=== PATIENT | female | born 1980 | race Caucasian/White ===

== ENCOUNTER 2019-10-19 13:51 | Inpatient (IN) ==
--- NOTE | 2019-10-19 14:19 | DR.URIAD ---
HPI - Time Seen Time seen: 14:09 - PCP Primary Care Physician: nfd - Complaint Chief Complaint:: pt was seen last night in [place] last night and they wanted to admit her for walking pneumonia but patient could not stay over night. she came today here cause she stated she feels bad. was checked and was negiative for flu and strep. - Reviewed Nurses Notes Reviewed: Yes - Source History Provided: Patient - Mode of Arrival Mode of Arrival: Ambulatory - Timing Onset of Chief Complaint: 10/17/19 PMH - PMH Past Medical History: Yes Past Medical History: Anxiety, Depression, Diabetes Past Surgical History: No Surgical History: - Family History History of Family Medical Conditions: No - Social History Does patient currently use any type of tobacco product: Yes Have you used tobacco products in the last 12 months: Yes Type of Tobacco Use: Cigarettes How many years tobacco product used: 15 Do you use any recreational Drugs:: Yes Lives With: Family Lives Where: Home - infectious screening In the last 2 months have you had wt loss of >10#?: NO Have you had fever, night sweats or hemotysis?: No Have you traveled outside the country in the last 6 months?: No Isolation: Standard PE - Vital Signs Vitals: Temperature 98.9 F Pulse Rate 112 Respiratory Rate 16 Blood Pressure 114/69 O2 Sat by Pulse Oximetry 95 ROR - Labs Reviewed Result Diagrams: 10/19/19 15:28 10/19/19 22:00 - Labs Reviewed Laboratory: WBC 17.7 X10^3/uL (3.6-10.0) H 10/19/19 15:28 RBC 5.36 X10^6/uL (3.5-5.4) 10/19/19 15:28 Hgb 16.1 g/dL (12.0-16.0) H 10/19/19 15:28 Hct 48.0 % (36.0-47.0) H 10/19/19 15:28 MCV 89.5 fL (80.0-100.0) 10/19/19 15:28 MCH 30.0 pg (27.0-34.0) 10/19/19 15:28 MCHC 33.6 g/dL (33.0-35.0) 10/19/19 15:28 RDW 13.9 % (11.6-16.5) 10/19/19 15:28 Plt Count 360 X10^3/uL (150.0-450.0) 10/19/19 15:28 MPV 8.0 fL (7.4-11.0) 10/19/19 15:28 Neut % (Auto) 77.8 % (42.0-75.0) H 10/19/19 15:28 Lymph % (Auto) 16.0 % (21.0-51.0) L 10/19/19 15:28 [place] % (Auto) 5.4 % (0.0-13.0) 10/19/19 15: Eos % (Auto) 0.2 % (0.9-2.9) L 10/19/19 15: Baso % (Auto) 0.6 % (0.2-1.0) 10/19/19 15: Neut # (Auto) 13.8 x10^3/uL (2.2-4.8) H 10/19/19 15: Lymph # (Auto) 2.8 X10^3/uL (1.3-2.9) 10/19/19 15:28 [place] # (Auto) 1.0 x10^3/uL (0.3-0.8) H 10/19/19 15:28 Eos # (Auto) 0.0 x10^3/uL (0.0-0.2) 10/19/19 15: Baso # (Auto) 0.1 X10^3/uL (0.0-0.1) 10/19/19 15: Absolute Nucleated RBC 0.1 /100WBC 10/19/19 15:28 Sodium 135 mmol/L (136-145) L 10/19/19 15:28 Corrected Sodium 141 mmol/L (136-145) 10/19/19 15:28 Potassium 3.7 mmol/L (3.5-5.1) 10/19/19 15:28 Chloride 97 mmol/L (98-107) L 10/19/19 15:28 Carbon Dioxide 27.3 mmol/L (21-32) 10/19/19 15:28 BUN 7 mg/dL (7-18) 10/19/19 15:28 Creatinine 0.87 mg/dL (0.55-1.02) 10/19/19 15:28 Est GFR (MDRD) Af Amer > 60 (>60) 10/19/19 15:28 Est GFR (MDRD) Non-Af > 60 (>60) 10/19/19 15:28 Glucose 349 mg/dL (65-99) H 10/19/19 15:28 Calcium 9.4 mg/dL (8.5-10.1) 10/19/19 15:28 Corrected Calcium 10.1 mg/dL (8.5-10.1) 10/19/19 15:28 Total Bilirubin 0.60 mg/dL (0.2-1.0) 10/19/19 15:28 AST 13 Units/L (15-37) L 10/19/19 15:28 ALT 13 Units/L (12-78) 10/19/19 15:28 Alkaline Phosphatase 76 Units/L (46-116) 10/19/19 15:28 Total Protein 8.2 g/dL (6.4-8.2) 10/19/19 15:28 Albumin 3.1 g/dL (3.4-5.0) L 10/19/19 15:28 Globulin 5.1 g/dL (2.5-4.5) H 10/19/19 15:28 Albumin/Globulin Ratio 0.6 Ratio (1.1-2.1) L 10/19/19 15:28 Opioid - Opioid Risk Tool Total: 0 Total Score Risk Category: Low Risk - Diagnosis Discharge Problem: Pneumonia Qualifiers: Pneumonia type: due to unspecified organism Laterality: bilateral Lung location: lower lobe of lung Qualified Code(s): J18.9 - Pneumonia, unspecified organism - Discharge Plan Disposition: ADMITTED INPATIENT Condition: Stable
[2019-10-19] MEDS ORDERED: XOPENEX 1.25 MG/3 ML NEBULE NEB ONE ×2 (15:30→15:34)
[2019-10-19 15:41] LABS: BASOPHILS # (AUTO) 0.1 X10^3/uL (0.0-0.1); BASOPHILS % (AUTO) 0.6 % (0.2-1.0); EOSINOPHILS % (AUTO) 0.2 % (0.9-2.9); HEMOGLOBIN 16.1 g/dL (12.0-16.0); LYMPHOCYTES # (AUTO) 2.8 X10^3/uL (1.3-2.9); MEAN CORPUSCULAR HGB CONC 33.6 g/dL (33.0-35.0); MEAN CORPUSCULAR VOLUME 89.5 fL (80.0-100.0); MONOCYTES % (AUTO) 5.4 % (0.0-13.0); NEUTROPHILS # (AUTO) 13.8 x10^3/uL (2.2-4.8); NEUTROPHILS % (AUTO) 77.8 % (42.0-75.0); PLATELET COUNT 360 X10^3/uL (150.0-450.0); RED BLOOD COUNT 5.36 X10^6/uL (3.5-5.4); RED CELL DISTRIBUTION WIDTH 13.9 % (11.6-16.5); WHITE BLOOD COUNT 17.7 X10^3/uL (3.6-10.0)
--- NOTE | 2019-10-19 15:59 | RAD ---
HISTORY:Cough, congestion, fever, wheezingStudy: PA and lateral views of the chestComparison:NoneFindings:There are bilateral lower lobe infiltrates compatible with pneumonia. No effusion or pneumothorax.Cardiac and mediastinal contours are within normal limits .The soft tissues are intact .IMPRESSION:1. Bilateral lower lobe infiltrates compatible with pneumonia.Electronically signed by: ALONA FLORENTINO (Oct 19, 2019 15:58:35)
[2019-10-19 16:06] LABS: ALANINE AMINOTRANSFERASE 13 Units/L (12-78); ALBUMIN 3.1 g/dL (3.4-5.0); ALKALINE PHOSPHATASE 76 Units/L (46-116); ASPARTATE AMINO TRANSFERASE 13 Units/L (15-37); BLOOD UREA NITROGEN 7 mg/dL (7-18); CALCIUM 9.4 mg/dL (8.5-10.1); CARBON DIOXIDE 27.3 mmol/L (21-32); CHLORIDE 97 mmol/L (98-107); COR CA(FOR HYPOALB) 10.1 mg/dL (8.5-10.1); COR NA(FOR HYPERGLY) 141 mmol/L (136-145); CREATININE 0.87 mg/dL (0.55-1.02); SODIUM 135 mmol/L (136-145); TOTAL PROTEIN 8.2 g/dL (6.4-8.2); eGFR NON BLACK RACES > 60 (>60)
[2019-10-19] MEDS ORDERED: LEVAQUIN PREMIX IV 750 MG 750 MG/150 ML BAG IV ONE ×2 (16:29→16:45)
[2019-10-19] MEDS ORDERED: NS 1000 ML 1,000 ML ONE (16:34)
[2019-10-19] MEDS: NS 1000 ML 1,000 ML IV SCH (16:44)
[2019-10-19] MEDS ORDERED: ZOSYN VIAL 3.375 GRAMS 3.375 G in NS 100 ML IV + SPIKE MINIBAG* 100 ML IV ONE (16:47)
[2019-10-19] MEDS ORDERED: SOLU-Medrol 125 MG VIAL IVP ONE (16:48)
[2019-10-19] MEDS ORDERED: SOLU-Medrol 125 MG VIAL ONE (16:55)
[2019-10-19] MEDS ORDERED: ZOSYN VIAL 3.375 GRAMS IV ONE (18:17)
[2019-10-19] MEDS ORDERED: NS 100 ML IV + SPIKE MINIBAG* 100 ML IV ONE (18:17)
[2019-10-19] MEDS ORDERED: NICOTINE PATCH TD ONE (18:51)
[2019-10-19] MEDS: NICOTINE PATCH TD SCH (18:54)
[2019-10-19] MEDS: DUONEB 0.5 MG/3 MG (3 mL) NEB SCH (19:14)
[2019-10-19] MEDS ORDERED: SALINE 3% 15 ML NEB TX NEB ONE (19:57)
[2019-10-19] MEDS ORDERED: PREVNAR 13 IM ONE (22:59)
[2019-10-19] MEDS ORDERED: AFLURIA II4 or FLUARIX II4 IM ONE (22:59)
[2019-10-19 23:00] VITALS: BMI 33.7
[2019-10-19] MEDS ORDERED: KLONOPIN TAB 0.5 MG PO PRN (23:47)
[2019-10-19] MEDS ORDERED: ABILIFY PO SCH (23:48)
[2019-10-19] MEDS ORDERED: DESYREL PO SCH (23:49)
[2019-10-20] MEDS: DUONEB 0.5 MG/3 MG (3 mL) NEB SCH ×3 (00:10→12:22)
[2019-10-20] MEDS ORDERED: NICOTINE PATCH TD ONE (04:41)
[2019-10-20] MEDS: HumuLIN R SUBCUT PRN ×3 (04:51→12:28)
[2019-10-20] MEDS: NICOTINE PATCH TD SCH ×2 (04:53→10:46)
[2019-10-20 06:02] LABS: BASOPHILS % (AUTO) 0.3 % (0.2-1.0); HEMATOCRIT 43.6 % (36.0-47.0); HEMOGLOBIN 14.9 g/dL (12.0-16.0); LYMPHOCYTES # (AUTO) 1.4 X10^3/uL (1.3-2.9); LYMPHOCYTES % (AUTO) 11.1 % (21.0-51.0); MEAN CORPUSCULAR HEMOGLOBIN 30.2 pg (27.0-34.0); MEAN CORPUSCULAR HGB CONC 34.1 g/dL (33.0-35.0); MEAN CORPUSCULAR VOLUME 88.5 fL (80.0-100.0); MEAN PLATELET VOLUME 7.9 fL (7.4-11.0); MONOCYTES # (AUTO) 0.3 x10^3/uL (0.3-0.8); MONOCYTES % (AUTO) 2.7 % (0.0-13.0); NEUTROPHILS % (AUTO) 85.9 % (42.0-75.0); PLATELET COUNT 344 X10^3/uL (150.0-450.0); RED BLOOD COUNT 4.93 X10^6/uL (3.5-5.4); RED CELL DISTRIBUTION WIDTH 14.1 % (11.6-16.5); WHITE BLOOD COUNT 12.9 X10^3/uL (3.6-10.0)
[2019-10-20 06:31] LABS: ALANINE AMINOTRANSFERASE 12 Units/L (12-78); ALBUMIN 2.8 g/dL (3.4-5.0); ALKALINE PHOSPHATASE 71 Units/L (46-116); ASPARTATE AMINO TRANSFERASE 9 Units/L (15-37); BLOOD UREA NITROGEN 15 mg/dL (7-18); CALCIUM 9.2 mg/dL (8.5-10.1); CARBON DIOXIDE 24.4 mmol/L (21-32); CHLORIDE 98 mmol/L (98-107); COR CA(FOR HYPOALB) 10.2 mg/dL (8.5-10.1); COR NA(FOR HYPERGLY) 141 mmol/L (136-145); CREATININE 0.78 mg/dL (0.55-1.02); SODIUM 134 mmol/L (136-145); TOTAL PROTEIN 7.6 g/dL (6.4-8.2); eGFR NON BLACK RACES > 60 (>60)
[2019-10-20] MEDS: NS 1000 ML 1,000 ML IV SCH (08:52)
[2019-10-20] MEDS ORDERED: GLUCOPHAGE XR PO SCH ×2 (09:00→11:00)
[2019-10-20] MEDS ORDERED: ABILIFY PO SCH (10:30)
[2019-10-20] MEDS: KLONOPIN TAB 0.5 MG PO SCH ×2 (10:48→14:26)
[2019-10-20] MEDS ORDERED: DESYREL PO SCH (11:00)
[2019-10-20 14:25] VITALS: BP 90/52
[2019-10-20] MEDS ORDERED: SNACK - Diabetic Appropriate PO SCH (20:00)
== END 2019-10-20 14:15 | disposition left against medical advice (07) | DRG 195 ==
LOC: ER 13:56 → MED/SURG 16:43
PROVIDERS: ADMIT Internal Medicine; ATTEND Internal Medicine
CPT/HCPCS: 36415; 71020; 71046; 80053; 82947; 85025; 87040; 94640; 94760; 96365; 96367; 96374; 96375; 99284; A4222; J1815; J1956; J2543; J2930; J7030; J7050; J7620